=== PATIENT | male | born 1980 | race Caucasian/White ===

== ENCOUNTER 2017-06-24 08:32 | Emergency (ER) | payer SELFPAY ==
[~2017-06-24] VITALS: Ht 177.8 cm; Wt 93.0 kg
[2017-06-24] MEDS ORDERED: ANUSOL-HC25 MG PR (08:57)
== END 2017-06-24 09:38 | disposition home or self-care (01) ==
LOC: ED 08:32
DX: K64.4 Residual hemorrhoidal skin tags (principal); K42.9 Umbilical hernia without obstruction or gangrene; Z88.1 Allergy status to other antibiotic agents
CPT/HCPCS: 85025; 99283

== ENCOUNTER 2017-09-10 08:47 | Emergency (ER) | payer OTHER ==
[~2017-09-10] VITALS: Ht 177.8 cm; Wt 93.0 kg
[~2017-09-10 08:47] MED LIST: ANUSOL-HC25 MG PR
== END 2017-09-10 09:09 | disposition home or self-care (01) ==
LOC: ED 08:47
DX: S19.9XXA Unspecified injury of neck, initial encounter (principal); W20.8XXA Other cause of strike by thrown, projected or falling object, initial encounter

== ENCOUNTER 2017-10-01 15:37 | Emergency (ER) | payer OTHER ==
[~2017-10-01] VITALS: Ht 177.8 cm; Wt 93.0 kg
[2017-10-01] MEDS ORDERED: IBUPROFEN800 MG PO (16:50)
[2017-10-01] MEDS ORDERED: CYCLOBENZAPRINE10 MG PO (21:02)
== END 2017-10-01 21:12 | disposition home or self-care (01) ==
LOC: ED 15:37
DX: S09.90XA Unspecified injury of head, initial encounter (principal); S16.1XXA Strain of muscle, fascia and tendon at neck level, initial encounter; Z88.1 Allergy status to other antibiotic agents; W19.XXXA Unspecified fall, initial encounter
CPT/HCPCS: 70450; 72125; 99284